=== PATIENT | male | born 1995 | race Caucasian/White ===

== ENCOUNTER 2024-02-03 07:50 | Outpatient (CLI) | payer BC, SELFPAY | END 2024-02-03 07:51 | disposition home or self-care (01) | LOC: NFLDREF 02-23 12:22 | PROVIDERS: PCP Family Medicine; Referring Provider Family Medicine; Visit Provider Family Medicine | DX: E78.5 Hyperlipidemia, unspecified (principal); Z13.1 Encounter for screening for diabetes mellitus | CPT/HCPCS: 80061; 82947 ==